=== PATIENT | female | born 1980 | race American Indian/Alaskan Native ===

== ENCOUNTER 2019-10-12 11:24 | Emergency (ER) | payer OTHER ==
[2019-10-12] MEDS ORDERED: ACETAMINOPHEN 325 MG TAB PO ONE (12:58)
[2019-10-12] MEDS ORDERED: ACETAMINOPHEN 325 MG TAB ONE (13:00)
[2019-10-12] MEDS ORDERED: BUTALB/ACETAMINOPHEN/CAFFEINE TAB PO ONE (14:06)
--- NOTE | 2019-10-12 14:06 | Emergency Department Report ---
ED General Adult HPI - General Chief complaint: Headache Stated complaint: BLOOD PRESSURE Time Seen by Provider: 10/12/19 13:43 Source: patient Mode of arrival: Ambulatory Limitations: No Limitations - History of Present Illness Initial comments: Patient reports that she was sent over here by her dentist secondary to elevated blood pressure. She went to have a tooth pulled this morning when they noted her blood pressure was 200/100. She states that she has had a mild headache since last night and does not currently take blood pressure medication but was in the past on Zestoretic. When asked about other symptoms, she states that she had a brief chest pain that lasted for a couple of seconds this morning and then resolved. Denies any recurrence of chest pain, denies shortness of breath, denies dizziness/lightheadedness. No modifying factors. Currently complains of a mild headache, not the worst of her life or sudden onset. Severity scale (0 -10): 7 Improves with: none Worsens with: none - Related Data Previous Rx's Medication Instructions Recorded Last Taken Type Lisinopril/Hydrochlorothiazide 1 each PO DAILY #30 tablet 10/12/19 Unknown Rx [Zestoretic 10-12.5 mg Tablet] Allergies Allergy/AdvReac Type Severity Reaction Status Date / Time ibuprofen [From Motrin] Allergy Rash Verified 10/12/19 11:32 Penicillins Allergy Rash Verified 10/12/19 11:32 ED Review of Systems ROS: Stated complaint: BLOOD PRESSURE Other details as noted in HPI Comment: All other systems reviewed and negative Neurological: as per HPI ED Past Medical Hx - Past Medical History Previous Medical History?: Yes Hx Hypertension: Yes - Surgical History Past Surgical History?: Yes Additional Surgical History: Hysterectomy - Social History Smoking Status: Never Smoker Substance Use Type: None - Medications Home Medications: Home Medications Medication Instructions Recorded Confirmed Last Taken Type Lisinopril/Hydrochlorothiazide 1 each PO DAILY #30 tablet 10/12/19 Unknown Rx [Zestoretic 10-12.5 mg Tablet] ED Physical Exam - General Limitations: No Limitations General appearance: alert, in no apparent distress - Head Head exam: Present: atraumatic, normocephalic - Eye Eye exam: Present: normal appearance - ENT ENT exam: Present: mucous membranes moist - Neck Neck exam: Present: normal inspection - Respiratory Respiratory exam: Present: normal lung sounds bilaterally. Absent: respiratory distress - Cardiovascular Cardiovascular Exam: Present: regular rate, normal rhythm. Absent: systolic murmur, diastolic murmur, rubs, gallop - GI/Abdominal GI/Abdominal exam: Present: soft, normal bowel sounds. Absent: tenderness - Extremities Exam Extremities exam: Present: normal inspection - Back Exam Back exam: Present: normal inspection - Neurological Exam Neurological exam: Present: alert, oriented X3, CN II-XII intact, normal gait, reflexes normal. Absent: motor sensory deficit - Psychiatric Psychiatric exam: Present: normal affect, normal mood - Skin Skin exam: Present: warm, dry, intact, normal color. Absent: rash ED Course Vital Signs 10/12/19 10/12/19 12:17 15:18 Temperature 98.4 F Pulse Rate 81 Respiratory 18 16 Rate Blood Pressure 139/101 O2 Sat by Pulse 100 Oximetry ED Medical Decision Making - Lab Data Result diagrams: 10/12/19 Unknown Lab Results 10/12/19 10/12/19 10/12/19 Range/Units 14:45 16:40 Unknown Sodium 141 (137-145) mmol/L Potassium 6.0 H 4.1 D 6.7 H* (3.6-5.0) mmol/L Chloride 103.1 (98-107) mmol/L Carbon Dioxide 25 (22-30) mmol/L Anion Gap 19 mmol/L BUN 7 (7-17) mg/dL Creatinine 0.6 L (0.7-1.2) mg/dL Estimated GFR > 60 ml/min BUN/Creatinine Ratio 12 % Glucose 88 (65-100) mg/dL Calcium 9.6 (8.4-10.2) mg/dL - EKG Data -: EKG Interpreted by Me EKG shows normal: sinus rhythm Rate: normal - EKG Data When compared to previous EKG there are: previous EKG unavailable Interpretation: no acute changes, normal EKG - Medical Decision Making 39-year-old female presenting at referral of her dentist for elevated blood pressure. She was also reporting a mild headache that started last night. On exam here, no focal neurologic deficits are noted, heart sounds are normal, lungs clear, abdomen soft and nontender. She is well-appearing and in no distress. She reports that she is to be on blood pressure medication but has not taken it in a very long time. She was on Zestoretic. Patient was given medication for headache, Fioricet, Reglan, Benadryl, Decadron with modest improvement. There are no findings to suggest subarachnoid hemorrhage on exam. We did check a chemistry panel which showed hyperkalemia though the specimen was hemolyzed and a repeat specimen was also hemolyzed however after lab came to draw for the third time, potassium was noted to be 4.1. EKG is nonischemic, overall normal. I do not feel that neuroimaging is necessary at this time given normal neurologic exam and improving symptoms. Would recommend blood pressure medication, close outpatient follow-up with PCP and blood pressure monitoring at home. She agrees with plan. Return precautions were given. BP here has been noted to be only mildly elevated, 140s to 150 systolic. - Differential Diagnosis htn, migraine, tension [place], doubt [facility] Critical care attestation.: If time is entered above; I have spent that time in minutes in the direct care of this critically ill patient, excluding procedure time. ED Disposition Clinical Impression: Essential hypertension Headache Qualifiers: Headache type: unspecified Headache chronicity pattern: acute headache Intractability: not intractable Qualified Code(s): R51 - Headache Disposition: DC-01 TO HOME OR SELFCARE Is pt being admited?: No Condition: Good Instructions: Hypertension (ED) Prescriptions: Lisinopril/Hydrochlorothiazide [Zestoretic 10-12.5 mg Tablet] 1 each PO DAILY #30 tablet Referrals: BIRD CARDONA MD [Primary Care Provider] - 3-5 Days DEBBIE MENDES MD [Staff Physician] - 3-5 Days Time of Disposition: 17:27
[2019-10-12 15:18] LABS: BUN/Creatinine Ratio 12; Blood Urea Nitrogen 7 mg/dL (7-17); Calcium 9.6 mg/dL (8.4-10.2); Hemolysis Index 167
[2019-10-12] MEDS ORDERED: METOCLOPRAMIDE 10 MG TAB PO ONE (17:21)
[2019-10-12] MEDS ORDERED: diphenhydrAMINE 25 MG CAP PO ONE (17:21)
[2019-10-12] MEDS ORDERED: dexAMETHasone 20 MG/5 ML VIAL IM ONE (17:21)
[2019-10-12 18:28] VITALS: BP 156/97
== END 2019-10-12 18:28 | disposition home or self-care (01) ==
LOC: ED 11:24
DX: I10 Essential (primary) hypertension (principal); R51 Headache; Z88.0 Allergy status to penicillin; Z88.8 Allergy status to other drugs, medicaments and biological substances; Z79.899 Other long term (current) drug therapy; Z90.710 Acquired absence of both cervix and uterus
CPT/HCPCS: 36415; 80048; 84132; 93005; 93010; 96372; 99283; J1100